=== PATIENT | female | born 1955 | race African-American/Black ===

== ENCOUNTER 2017-05-14 09:58 | Emergency (ER) | payer OTHER ==
--- NOTE | 2017-05-14 10:15 | PDOC ---
History of Present Illness - General History Source: Patient - History of Present Illness Timing/Duration: reports: just prior to arrival Possible Cause: Yes: no prior episodes Associated Symptoms: reports: chest pain/soreness, shortness of breath <Deion Akins - Last Filed: 05/14/17 12:43> <Marleni Marie - Last Filed: 05/17/17 12:11> - General Stated Complaint: DIFFICULTY BREATHING Time Seen by Provider: 05/14/17 10:01 Past History - Past Medical History Anemia: No Asthma: No Cancer: No Cardiac Disorders: Yes (MITRAL VALVE REPAIR) CVA: No COPD: No CHF: No Dementia: No Diabetes: Yes GI Disorders: No Disorders: No HTN: No Hypercholesterolemia: No Liver Disease: No Seizures: No Thyroid Disease: No - Psycho/Social/Smoking Cessation Hx Smoking History: Never smoked Have you smoked in the past 12 months: No <Stacy AkinsKeerthi - Last Filed: 05/14/17 12:43> <Marleni Marie - Last Filed: 05/17/17 12:11> - Past Medical History Allergies/Adverse Reactions: Allergies Allergy/AdvReac Type Severity Reaction Status Date / Time No Known Allergies Allergy Verified 05/14/17 10:34 Home Medications: Ambulatory Orders Aspirin [ASA -] 81 mg PO DAILY 07/30/16 Folic Acid 1 mg PO DAILY 07/30/16 Furosemide [Lasix -] 40 mg PO DAILY 07/30/16 Metformin HCl [Glucophage -] 500 mg PO BID 07/30/16 Potassium Chloride [K-Dur -] 30 meq PO DAILY 07/30/16 Carvedilol [Coreg] 25 mg PO BID 05/14/17 Methotrexate Sodium/Pf [Methotrexate 1 gm Vial] 1 gm IJ ASDIR 05/14/17 Review of Systems - Review of Systems Constitutional: No: Chills, Fever Respiratory: Yes: Shortness of Breath. No: Cough, Wheezing Cardiac (ROS): Yes: Chest Pain. No: Lightheadedness, Palpitations <Deion Akins Last Filed: 05/14/17 12:43> *Physical Exam - Physical Exam General Appearance: Yes: Appropriately Dressed, Mild Distress HEENT: positive: Normal Voice Neck: positive: Supple Respiratory/Chest: positive: Lungs Clear, Normal Breath Sounds. negative: Respiratory Distress Cardiovascular: positive: Regular Rate, S1, S2, Edema (trace b/l) Gastrointestinal/Abdominal: positive: Soft. negative: Tender Extremity: positive: Pedal Edema Integumentary: positive: Dry, Warm Neurologic: positive: Fully Oriented, Alert, Normal Mood/Affect <Patsy AkinsMagnolia - Last Filed: 05/14/17 12:43> - Vital Signs Last Vital Signs Temp Pulse Resp BP Pulse Ox 98.2 F 84 18 129/73 100 05/14/17 10:20 05/14/17 10:20 05/14/17 10:20 05/14/17 10:20 05/14/17 10:20 <Marleni Marie - Last Filed: 05/17/17 12:11> Heart Score/ECG Review - ECG Intrepretation Comment:: 05/14/17 12:34 EKG with normal sinus rhythm at 84 bpm, with flipped T's in V2, no old to compare. The axis is normal. The intervals are normal <MablePatsyAlley - Last Filed: 05/14/17 12:43> ED Treatment Course - LABORATORY CBC & Chemistry Diagram: 05/14/17 11:05 05/14/17 11:55 - RADIOLOGY Radiology Studies Ordered: Category Date Time Status CHEST X-RAY PORTABLE* [RAD] Stat Radiology 05/14/17 10:02 Ordered <Patsy AkinsMagnolia - Last Filed: 05/14/17 12:43> - LABORATORY CBC & Chemistry Diagram: 05/14/17 11:05 05/14/17 11:55 - ADDITIONAL ORDERS Additional order review: 05/14/17 11:05 RBC 3.67 MCV 85.4 MCHC 30.6 L RDW 22.2 H MPV 9.1 Neutrophils % 73.7 Lymphocytes % 19.5 Monocytes % 5.3 Eosinophils % 0.9 Basophils % 0.6 - Medications Given in the ED: ED Medications Discontinued Medications Generic Name Dose Route Start Last Admin Trade Name Freq PRN Reason Stop Dose Admin Aspirin 325 mg 05/14/17 10:16 05/14/17 10:45 Asa - PO 05/14/17 10:17 325 mg ONCE ONE Administration <Marleni Marie - Last Filed: 05/17/17 12:11> Medical Decision Making - Medical Decision Making 05/14/17 10:10 62-year-old female, history of hypertension, diabetes, CHF on 40 mg of Lasix daily, here with acute shortness of breath that started while at work today. Also complaining of non-radiating pressure to substernal area. States shortness of breath has since improved. Does not feel like her CHF as per patient. Denies diaphoresis, palpitations, nausea or vomiting. States her CHF is well-controlled and has never had an to go to the ER for exacerbation in the past. Last stress test was earlier this year and was ? abnormal as per patient and has since an echo, but does not know results. No recent cath as per patient. Follows up with cardiology intermediate teacher, Dr. Ari Cowan or [facility] ([phone]) and PMD, Dr Kaye at [facility] ([phone]) See exam SOB w/ chest pressure this am Since improved Stable w/ trace pedal edema R/o ACS vs CHF flare, less likely PE or dissection 0as -ekg -cxr -labs -will contact outside cards for collateral info -anticipate admission 05/14/17 10:15 05/14/17 12:33 Nurse informed me that pt is requesting to leave. Patient told nurse that she feels better and would like to go home. When I went to bedside to talk to pt, it appears that pt had eloped as gown was found on stretcher w/ heplock at bedside. At this time, labs came back normal 05/14/17 12:43 <Deion Akins - Last Filed: 05/14/17 12:43> *DC/Admit/Observation/Transfer <Deion Akins - Last Filed: 05/14/17 12:43> - Attestations Physician Attestion: I reviewed the case with the mid-level practitioner and agree with the mid- level practitioner's assessment, diagnosis and disposition. <Marleni Marie - Last Filed: 05/17/17 12:11> Diagnosis at time of Disposition: SOB (shortness of breath) - Discharge Dispostion Disposition: AGAINST MEDICAL ADVICE Condition at time of disposition: Unchanged/Unknown - Referrals Referrals: Jed Dominguez MD [Primary Care Provider] -
[2017-05-14] MEDS ORDERED: ASPIRIN 325 MG TABLET PO ONE (10:16)
[2017-05-14] MEDS ORDERED: ASPIRIN 325 MG TABLET ONE (10:48)
[2017-05-14 11:20] VITALS: BP 129/73; TEMP 98.2; BMI 35.1
[2017-05-14 11:23] LABS: BASOPHIL 0.6 % (0-2.0); EOSINOPHIL 0.9 % (0-4.5); MCH 26.1 pg (25.7-33.7); MCHC 30.6 g/dl (32.0-36.0); MEAN CELL VOLUME 85.4 fl (80-96); MEAN PLT VOLUME 9.1 fl (7.5-11.1); NEUTROPHILS 73.7 % (42.8-82.8); PLATELET COUNT 233 K/MM3 (134-434); RDW 22.2 % (11.6-15.6); WHITE BLOOD COUNT 4.4 K/mm3 (4.0-10.0)
[2017-05-14 11:38] VITALS: PULSE 84
[2017-05-14 12:10] LABS: URINE APPEARANCE CLEAR; URINE BILIRUBIN NEGATIVE (NEGATIVE); URINE BLOOD NEGATIVE (NEGATIVE); URINE COLOR COLORLESS; URINE GLUCOSE (UA) NEGATIVE (NEGATIVE); URINE KETONE NEGATIVE (NEGATIVE); URINE LEUK ESTERASE NEGATIVE (NEGATIVE); URINE NITRITE NEGATIVE (NEGATIVE); URINE PROTEIN NEGATIVE (NEGATIVE); URINE UROBILINOGEN NEGATIVE mg/dL (0.2-1.0)
[2017-05-14 12:35] LABS: ALBUMIN 3.6 g/dl (3.4-5.0); ANION GAP 7 (8-16); CALCIUM 8.3 mg/dL (8.5-10.1); CO2 26 mmol/L (21-32); CREATININE 1.1 mg/dL (0.55-1.02); GLUCOSE,RANDOM 152 mg/dL (74-106); SGOT/AST 20 U/L (15-37); SGPT/ALT 28 U/L (12-78)
[2017-05-14 12:37] LABS: BILIRUBIN,TOTAL 0.2 mg/dL (0.2-1.0); TOT PROT 7.6 g/dl (6.4-8.2)
[2017-05-14 12:40] LABS: ALK PHOS 94 U/L (45-117); TROPONIN I < 0.02 ng/ml (0.00-0.05)
[2017-05-14 15:47] LABS: ANISOCYTOSIS 2+
[2017-05-14 15:48] LABS: FRAGMENTED CELL 1+; MICROCYTOSIS 1+
--- NOTE | 2017-05-17 10:48 | EKG ---
Test Reason : Blood Pressure : / mmHG Vent. Rate : 084 BPM Atrial Rate : 084 BPM P-R Int : 164 ms QRS Dur : 086 ms QT Int : 392 ms P-R-T Axes : 047 022 043 degrees QTc Int : 463 ms NORMAL SINUS RHYTHM POSSIBLE LEFT ATRIAL ENLARGEMENT BORDERLINE ECG WHEN COMPARED WITH ECG OF 06-JUN-2004 18:41, NO SIGNIFICANT CHANGE WAS FOUND Confirmed by TREVOR BAILEY MD ([id number]) on 05/17/2017 10:48:38 AM Referred By: Confirmed By:TREVOR BAILEY MD
== END 2017-05-14 12:47 | disposition left against medical advice (07) ==
LOC: JER 09:58
DX: R06.02 Shortness of breath (principal); I10 Essential (primary) hypertension; E11.9 Type 2 diabetes mellitus without complications; I50.9 Heart failure, unspecified
CPT/HCPCS: 36415; 71010-TC; 80053; 81003; 82550; 83880; 84484; 85025; 93005; 93010; 99283-25

== ENCOUNTER 2017-09-16 12:40 | Emergency (ER) | payer OTHER ==
[2017-09-16 13:02] VITALS: BP 113/57; PULSE 86; TEMP 98.2; BMI 34.0
--- NOTE | 2017-09-16 13:29 | PDOC ---
History of Present Illness - General Chief Complaint: Laceration Stated Complaint: RT FINGER LACERATION Time Seen by Provider: 09/16/17 13:22 History Source: Patient Exam Limitations: No Limitations - History of Present Illness Initial Comments: 09/16/17 14:12 My Chief Complaint: rt. middle finger laceration History of Present Illness: Pt. is a 62 y/o with MVP repair, NIDDM here today with flap laceration rt. middle finger when she was using a mandalin prior to arrival. Pt. is rt. handed. Pt. denies any numbness of rt. hand and digits. Pt. is not up to date with immunizations. Occurred: reports: just prior to arrival Severity: reports: moderate (rt. third finger flap laceration) Pain Location: reports: upper extremity (rt. third finger ) Method of Injury: Yes: other (cut on a mandelin) Modifying Factors: improves with: None Loss of Consciousness: no loss of consciousness Associated Symptoms (Fall): denies symptoms Past History - Past Medical History Allergies/Adverse Reactions: Allergies Allergy/AdvReac Type Severity Reaction Status Date / Time amoxicillin trihydrate AdvReac Mild diarrhea Verified 09/16/17 12:56 [From Augmentin] potassium clavulanate AdvReac Mild diarrhea Verified 09/16/17 12:56 [From Augmentin] Home Medications: Ambulatory Orders Aspirin [ASA -] 81 mg PO DAILY 07/30/16 Folic Acid 1 mg PO DAILY 07/30/16 Furosemide [Lasix -] 40 mg PO DAILY 07/30/16 Metformin HCl [Glucophage -] 500 mg PO BID 07/30/16 Potassium Chloride [K-Dur -] 30 meq PO DAILY 07/30/16 Carvedilol [Coreg] 25 mg PO BID 05/14/17 Methotrexate Sodium/Pf [Methotrexate 1 gm Vial] 1 gm IJ ASDIR 05/14/17 Anemia: No Asthma: No Cancer: No Cardiac Disorders: Yes (MITRAL VALVE REPAIR) CVA: No COPD: No CHF: No Dementia: No Diabetes: Yes GI Disorders: No Disorders: No HTN: No Hypercholesterolemia: No Liver Disease: No Seizures: No Thyroid Disease: No - Surgical History Cardiac Surgery: Yes (valve repair 2005) - Suicide/Smoking/Psychosocial Hx Smoking History: Never smoked Have you smoked in the past 12 months: No Information on smoking cessation initiated: No Hx Alcohol Use: No Drug/Substance Use Hx: No Substance Use Type: None Review of Systems - Review of Systems Able to Perform ROS?: Yes Constitutional: No: Symptoms Reported HEENTM: No: Symptoms Reported Respiratory: No: Symptoms reported Cardiac (ROS): No: Symptoms Reported ABD/GI: No: Symptoms Reported : No: Symptoms Reported Musculoskeletal: No: Symptoms Reported Integumentary: Yes: Other (right third finger flap laceration ) Neurological: No: Symptoms reported *Physical Exam - Vital Signs Last Vital Signs Temp Pulse Resp BP Pulse Ox 98.2 F 86 16 113/57 100 09/16/17 12:57 09/16/17 12:57 09/16/17 12:57 09/16/17 12:57 09/16/17 12:57 - Physical Exam General Appearance: Yes: Appropriately Dressed Comments:: 09/16/17 14:05 radial pulse 4 + rt Extremity: positive: Normal Capillary Refill, Normal Inspection, Normal Range of Motion (rt. third finger) Integumentary: positive: Other (flap laceration proximal rt. middle finger ) Neurologic: positive: Normal Response, Respond to painful stimul, Responsive. negative: Numbness, Sensory Deficit (rt. third finger) Procedures - Consent Consent obtained: From Patient - Laceration/Wound Repair Right Upper Proximal Finger 3rd digit Wound Length: 2.6 to 5.0 cm Wound Explored: clean Wound's Depth, Shape: flap Irrigated w/ Saline: Yes Betadine Prep: Yes Anesthesia: 1% Lidocaine Amount of Anesthetic (ccs): 5 Wound Repaired With: Sutures Suture Size/Type: 5:0 Number of Sutures: 6 Sterile Dressing Applied: Yes Medical Decision Making - Medical Decision Making 09/16/17 14:14 Pt. is a 62 y/o with MVP repair, NIDDM here today with flap laceration rt. middle finger when she was using a mandalin prior to arrival. Pt. is rt. handed. Pt. denies any numbness of rt. hand and digits. Pt. is not up to date with immunizations. rt. middle finger laceration PLAN: 6 interrupted sutures applied to rt. middle finger TDAP 0.5 ml IM *DC/Admit/Observation/Transfer Diagnosis at time of Disposition: Laceration of finger of right hand Qualifiers: Encounter type: initial encounter Finger: middle finger Damage to nail status: without damage Foreign body presence: without foreign body Qualified Code(s): S61.212A - Laceration without foreign body of right middle finger without damage to nail, initial encounter - Discharge Dispostion Disposition: HOME Condition at time of disposition: Stable - Referrals Referrals: Jed Dominguez MD [Primary Care Provider] - - Patient Instructions Additional Instructions: Keep Wound dry today Today your tetanus diphtheria and pertussis vaccine was updated Tommorow you may wash your wound twice daily with antibacterial soap and water pat dry and apply tiny amount of bacitracin ointment cover with bandage except at night when sleeping let air out Return here in 10-14 days for suture removal or sooner if any discharge around wound or redness or any fever Patient voiced understanding of discharge instructions and all questions were answer - Post Discharge Activity
[2017-09-16] MEDS ORDERED: IBUPROFEN 600 MG TABLET (FP) PO ONE ×2 (14:07→14:14)
[2017-09-16] MEDS ORDERED: DIPHTH,PERTUSS(ACELL),TET 0.5 ML DISP.SYRIN IM ONE (14:08)
== END 2017-09-16 14:19 | disposition home or self-care (01) ==
LOC: JERFT 12:40
PROC: 0JQJ0ZZ Repair Right Hand Subcutaneous Tissue and Fascia, Open Approach (ICD-10-PCS; principal; 2017-09-16)
PROC: 3E0234Z Introduction of Serum, Toxoid and Vaccine into Muscle, Percutaneous Approach (ICD-10-PCS; 2017-09-16)
DX: S61.212A Laceration without foreign body of right middle finger without damage to nail, initial encounter (principal); W27.4XXA Contact with kitchen utensil, initial encounter; Y93.G1 Activity, food preparation and clean up; Y92.010 Kitchen of single-family (private) house as the place of occurrence of the external cause
CPT/HCPCS: 90715; 99281-25